=== PATIENT | female | born 1985 | race African-American/Black ===

== ENCOUNTER 2018-06-11 10:02 | Emergency (ER) | payer SELFPAY ==
--- NOTE | 2018-06-11 10:34 | ER Document Report ---
ED Medical Screen (RME) - General Chief Complaint: Vaginal Discharge Stated Complaint: VAGINAL PAIN Time Seen by Provider: 06/11/18 10:33 Notes: 32 years old female had sexual intercourse 7 years after, last , now having swelling of the vulvovaginal region. No discharges. Slight itching. Therefore present to the ED. TRAVEL OUTSIDE OF THE [place] IN LAST 30 DAYS: No - Related Data Allergies/Adverse Reactions: adhesive Allergy (Verified 06/11/18 10:25) No Known Drug Allergies Allergy (Verified 06/11/18 10:25) Past Medical History - Social History Chew tobacco use (# tins/day): No Frequency of alcohol use: Social Drug Abuse: None Renal/ Medical History: Denies: Hx Peritoneal Dialysis Physical Exam - Vital signs Vitals: Temp Pulse Resp BP Pulse Ox 98.4 F 69 14 119/78 99 06/11/18 10:25 06/11/18 10:25 06/11/18 10:25 06/11/18 10:25 06/11/18 10:25 Course - Vital Signs Vital signs: Temp Pulse Resp BP Pulse Ox 98.4 F 69 14 119/78 99 06/11/18 10:25 06/11/18 10:25 06/11/18 10:25 06/11/18 10:25 06/11/18 10:25 Doctor's Discharge - Discharge Referrals: LOCALMD,NO [Primary Care Provider] - Follow up as needed
--- NOTE | 2018-06-11 11:58 | ER Document Report ---
ED General - General Chief Complaint: Vaginal Discharge Stated Complaint: VAGINAL PAIN Time Seen by Provider: 06/11/18 10:33 Mode of Arrival: Ambulatory Information source: Patient Notes: 32-year-old female presents emergency department with complaints of vaginal swelling, pain, discharge. Patient states that she had intercourse a week ago and has had progressive symptoms since. Patient states that she is also had some intermittent vaginal itching. She has been applying Monistat with minimal relief of symptoms. Patient denies a history of STDs. She denies any dysuria, hematuria, vaginal bleeding TRAVEL OUTSIDE OF THE [place] IN LAST 30 DAYS: No - HPI Onset: Last week Onset/Duration: Sudden Quality of pain: Achy Severity: Mild Associated symptoms: None Exacerbated by: Denies Relieved by: Denies Similar symptoms previously: No Recently seen / treated by doctor: No - Related Data Allergies/Adverse Reactions: adhesive Allergy (Verified 06/11/18 10:25) No Known Drug Allergies Allergy (Verified 06/11/18 10:25) Past Medical History - Social History Smoking Status: Never Smoker Chew tobacco use (# tins/day): No Frequency of alcohol use: Social Drug Abuse: None Family History: Reviewed & Not Pertinent Patient has suicidal ideation: No Patient has homicidal ideation: No Renal/ Medical History: Denies: Hx Peritoneal Dialysis Review of Systems - Review of Systems Constitutional: No symptoms reported EENT: No symptoms reported Cardiovascular: No symptoms reported Respiratory: No symptoms reported Gastrointestinal: No symptoms reported Genitourinary: No symptoms reported Female Genitourinary: Painful intercourse Musculoskeletal: No symptoms reported Skin: No symptoms reported Hematologic/Lymphatic: No symptoms reported Neurological/Psychological: No symptoms reported -: Yes All other systems reviewed and negative Physical Exam - Vital signs Vitals: Temp Pulse Resp BP Pulse Ox 98.4 F 69 14 119/78 99 06/11/18 10:25 06/11/18 10:25 06/11/18 10:25 06/11/18 10:25 06/11/18 10:25 - General Notes: PHYSICAL EXAMINATION: GENERAL: Well-appearing, well-nourished and in no acute distress. HEAD: Atraumatic, normocephalic. EYES: Pupils equal round and reactive to light, extraocular movements intact, conjunctiva are normal. ENT: Nares patent, oropharynx clear without exudates. Moist mucous membranes. NECK: Normal range of motion, supple without lymphadenopathy LUNGS: Breath sounds clear to auscultation bilaterally and equal. No wheezes rales or rhonchi. HEART: Regular rate and rhythm without murmurs ABDOMEN: Soft, nontender, nondistended abdomen. No guarding, no rebound. No masses appreciated. Female : Ulceration seen at the vaginal hymen remnant. +white discharge. No CMT. Musculoskeletal: Normal range of motion, no pitting or edema. No cyanosis. NEUROLOGICAL: Cranial nerves grossly intact. Normal speech, normal gait. Normal sensory, motor exams PSYCH: Normal mood, normal affect. SKIN: Warm, Dry, normal turgor, no rashes or lesions noted. Course - Re-evaluation Re-evalutation: 06/11/18 13:10 Patient requesting treatment for STDs. Given rocephin and azithromycin in the ED. I will give her a rx for valtrex. HSV culture sent to lab. +UTI. Will start on cipro. Patient told to take the medication as directed, to followup with her PCP this week, and to return for worsening symptoms. 06/11/18 13:18 - Vital Signs Vital signs: Temp Pulse Resp BP Pulse Ox 98.4 F 69 14 119/78 99 06/11/18 10:25 06/11/18 10:25 06/11/18 10:25 06/11/18 10:25 06/11/18 10:25 - Laboratory Laboratory results interpreted by me: 06/11/18 11:54 Urine Ketones 20 H Urine Urobilinogen 2.0 H Ur Leukocyte Esterase MODERATE H Discharge - Discharge Clinical Impression: Herpes simplex virus (HSV) infection of vagina Condition: Good Disposition: HOME, SELF-CARE Instructions: Genital Herpes ([facility]) Prescriptions: Ciprofloxacin HCl [Cipro 500 mg Tablet] 250 mg PO BID #6 tablet Valacyclovir HCl [Valtrex 500 Mg Tablet] 1,000 mg PO BID #40 tablet Referrals: SHERI GASTELUM [Primary Care Provider] - Follow up as needed MONET REYNA DO [NO LOCAL MD] - Follow up as needed ANAYELI BREWER DO [ACTIVE STAFF] - Follow up as needed
[2018-06-11 12:13] LABS: APPEARANCE,URINE SLIGHTLY-CLOUDY; BILIRUBIN,URINE NEGATIVE (NEGATIVE); COLOR,URINE YELLOW; GLUCOSE, URINE NEGATIVE (NEGATIVE); KETONES,URINE 20 mg/dL (NEGATIVE); LEUKOCYTE ESTERASE,URINE MODERATE (NEGATIVE); NITRITE,URINE NEGATIVE (NEGATIVE); PROTEIN,URINE NEGATIVE (NEGATIVE); URINE SPECIFIC GRAVITY 1.021
[2018-06-11] MEDS ORDERED: AZITHROMYCIN 1 GM SUSP PACKET PO ONE (12:26)
[2018-06-11] MEDS ORDERED: CEFTRIAXONE INJ 250 MG VIAL IM ONE (12:26)
[2018-06-11] MEDS ORDERED: LIDOCAINE 1% INJ-PF (10 MG/ML) 30 ML SDV INFIL ONE (12:26)
[2018-06-11 12:36] LABS: BACTERIA (WET MOUNT) 3+ BACTERIA SEEN; RBCS (WET MOUNT) FEW RBCS SEEN; T.VAGINALIS (WET MOUNT) NO TRICHOMONAS SEEN; WBCS (WET MOUNT) FEW WBCS SEEN; YEAST (WET MOUNT) YEAST SEEN
[2018-06-11] MEDS ORDERED: AZITHROMYCIN 250 MG TABLET PO ONE (12:48)
[2018-06-11 13:41] VITALS: BP 114/87
[2018-06-11] MEDS ORDERED: ONDANSETRON 4 MG TAB.RAPDIS PO ONE (13:46)
[2018-06-11 15:27] LABS: CHLAM PCR NOT DETECTED (NOT DETECT)
[2018-06-11 15:28] LABS: GON PCR NOT DETECTED (NOT DETECT)
== END 2018-06-11 13:53 | disposition home or self-care (01) ==
LOC: ER 10:02
DX: A60.04 Herpesviral vulvovaginitis (principal); Z91.048 Other nonmedicinal substance allergy status
CPT/HCPCS: 99283; 96372; 87210; 81025; 81001; 87250; 87491; 87591; S0119; J3490; J0696

== ENCOUNTER 2020-06-28 15:12 | Emergency (ER) | payer SELFPAY ==
--- NOTE | 2020-06-28 15:44 | ER Document Report ---
ED Medical Screen (RME) - General Chief Complaint: Back Pain Stated Complaint: BACK PAIN,ABDOMINAL PAIN Time Seen by Provider: 06/28/20 15:40 Mode of Arrival: Ambulatory Information source: Patient Notes: 4-year-old female presented to ED for complaint of vaginal bleeding. She states last menstrual period was May 12. She has had an ectopic in the past. She was treated for methotrexate with that. [employer] 2 para 0. She does have genital herpes and has a history of a heart murmur. She states she does not smoke drink or use any illicit drugs. Will order blood urine and a tr ansvaginal ultrasound. With pain is on the left side. She states she has been intermittently bleeding for 3 weeks she states the cramping has been just before she starts bleeding for the last 3 weeks. I have greeted and performed a rapid initial assessment of this patient. A comprehensive ED assessment and evaluation of the patient, analysis of test results and completion of medical decision making process will be conducted by an additional ED providers. TRAVEL OUTSIDE OF THE [place] IN LAST 30 DAYS: No - Related Data Allergies/Adverse Reactions: adhesive Allergy (Verified 06/11/18 10:25) hartley Allergy (Verified 03/01/19 10:17) No Known Drug Allergies Allergy (Verified 06/11/18 10:25) Past Medical History Renal/ Medical History: Denies: Hx Peritoneal Dialysis Past Surgical History: Reports: Hx Oral Surgery - dental - Immunizations Immunizations up to date: Yes Physical Exam - Vital signs Vitals: Temp Pulse Resp BP Pulse Ox 98.1 F 92 14 119/75 100 06/28/20 15:31 06/28/20 15:31 06/28/20 15:31 06/28/20 15:31 06/28/20 15:31 Course - Vital Signs Vital signs: Temp Pulse Resp BP Pulse Ox 98.1 F 92 14 119/75 100 06/28/20 15:31 06/28/20 15:31 06/28/20 15:31 06/28/20 15:31 06/28/20 15:31
[2020-06-28 16:28] LABS: ABSOLUTE LYMPHOCYTES (AUTO) 1.8 10^3/uL (0.5-4.7); ABSOLUTE MONOCYTES (AUTO) 0.9 10^3/uL (0.1-1.4); ABSOLUTE NEUT (AUTO) 4.5 10^3/uL (1.7-8.2); BASOPHILS % (AUTO) 0.7 % (0-2); EOSINOPHILS % (AUTO) 0.2 % (0-6); HEMATOCRIT 37.3 % (36.0-47.0); HEMOGLOBIN 12.6 g/dL (12.0-15.5); LYMPHOCYTES % (AUTO) 24.5 % (13-45); MEAN CORPUSCULAR HEMOGLOBIN 31.6 pg (27.0-33.4); MEAN CORPUSCULAR HGB CONC 33.6 g/dL (32.0-36.0); MEAN CORPUSCULAR VOLUME 94 fl (80-97); MONOCYTES % (AUTO) 12.2 % (3-13); PLATELET COUNT 212 10^3/uL (150-450); RED BLOOD COUNT 3.98 10^6/uL (3.72-5.28); RED CELL DISTRIBUTION WIDTH 13.5 % (11.5-14.0); SEGMENTED NEUTROPHILS % (AUTO) 62.4 % (42-78); TOTAL CELLS COUNTED % (AUTO) 100 %; WHITE BLOOD COUNT 7.1 10^3/uL (4.0-10.5)
[2020-06-28 16:32] LABS: APPEARANCE,URINE CLEAR; BILIRUBIN,URINE NEGATIVE (NEGATIVE); COLOR,URINE YELLOW; GLUCOSE, URINE NEGATIVE (NEGATIVE); KETONES,URINE NEGATIVE (NEGATIVE); LEUKOCYTE ESTERASE,URINE NEGATIVE (NEGATIVE); NITRITE,URINE NEGATIVE (NEGATIVE); PROTEIN,URINE NEGATIVE (NEGATIVE); UROBILINOGEN,URINE NEGATIVE mg/dL (<2.0)
[2020-06-28 16:42] LABS: ALBUMIN 4.6 g/dL (3.5-5.0); ALKALINE PHOSPHATASE 52 U/L (38-126); ANION GAP 10 (5-19); ASPARTATE AMINO TRANSFERASE 22 U/L (14-36); BILIRUBIN,TOTAL 0.5 mg/dL (0.2-1.3); BLOOD UREA NITROGEN 9 mg/dL (7-20); CALCIUM 9.3 mg/dL (8.4-10.2); CARBON DIOXIDE 27 mmol/L (22-30); CHLORIDE 101 mmol/L (98-107); GLUCOSE 119 mg/dL (75-110); POTASSIUM 3.6 mmol/L (3.6-5.0)
--- NOTE | 2020-06-28 17:26 | ER Document Report ---
ED GI/ - General Chief Complaint: Vaginal Bleeding Stated Complaint: BACK PAIN,ABDOMINAL PAIN Time Seen by Provider: 06/28/20 15:40 Primary Care Provider: KESHA CARRERA PA-C [Primary Care Provider] - Follow up as needed Mode of Arrival: Ambulatory Notes: CHIEF COMPLAINT: Left lower quadrant pain HPI: 84-year-old female with prior history of ovarian cyst and ectopic presenting with 3 weeks of intermittent pain in the left pelvis more persistent today. No fever. Did miss her menstrual cycle last month has had some dark vaginal bleeding over the last several days. No vomiting. ROS: See HPI - all other systems were reviewed and are otherwise negative Constitutional: no fever or recent illness Eyes: no drainage, no blurred vision ENT: no runny nose, no sore throat Cardiovascular: no chest pain Resp: no SOB, no cough GI: no vomiting, no diarrhea, positive left lower pelvic pain : no dysuria, no vaginal discharge, positive vaginal bleeding Integumentary: no rash Allergy: no hives Musculoskeletal: no extremity pain or swelling Neurological: no numbness/tingling, no weakness MEDICATIONS: I agree with the patient medications as charted by the RN. ALLERGIES: I agree with the allergies as charted by the RN. PAST MEDICAL HISTORY/PAST SURGICAL HISTORY: Reviewed and agree as charted by RN. SOCIAL HISTORY: Reviewed and agree as charted by RN. FAMILY HISTORY: No significant familial comorbid conditions directly related to patient complaint EXAM: Reviewed vital signs as charted by RN. CONSTITUTIONAL: Alert and oriented and responds appropriately to questions. Well-appearing; well-nourished HEAD: Normocephalic; atraumatic EYES: PERRL; Conjunctivae clear, sclerae non-icteric ENT: normal nose; no rhinorrhea; moist mucous membranes; pharynx without lesions noted NECK: Supple without meningismus; non-tender; no cervical lymphadenopathy, no masses CARD: RRR; no murmurs, no clicks, no rubs, no gallops; symmetric distal pulses RESP: Normal chest excursion without splinting or tachypnea; breath sounds clear and equal bilaterally; no wheezes, no rhonchi, no rales ABD/GI: Normal bowel sounds; non-distended; soft, non-tender, no rebound, no guarding; no palpable organomegaly or masses : Female nurse interior design principal present. External genitalia normal. No skin lesions noted. Pelvic Exam: Very small amount of dark red blood in the vaginal vault. No purulent discharge. Cervix appears normal. No CMT. No lesions or masses. Uterus normal size and non tender. Right/Left adnexa normal size and mildly tender on the left. BACK: The back appears normal and is non-tender to palpation, there is no CVA tenderness EXT: Normal ROM in all joints; non-tender to palpation; no cyanosis, no effusions, no edema SKIN: Normal color for age and race; warm; dry; good turgor; no acute lesions noted NEURO: Moves all extremities equally; Motor and sensory function intact PSYCH: The patient's mood and manner are appropriate. Grooming and personal hygiene are appropriate. MDM: 34-year-old female presenting with left pelvic pain over the last 2 to 3 weeks. Some dark vaginal bleeding. Suspect ovarian cyst. Patient is not . Low suspicion for torsion at this time. Initial ultrasound placed in the triage process was for OB ultrasound I have spoken with the vibration technician and we will change this to a non transvaginal ultrasound with Doppler TRAVEL OUTSIDE OF THE [place] IN LAST 30 DAYS: No - Related Data Allergies/Adverse Reactions: adhesive Allergy (Verified 06/28/20 17:11) hartley Allergy (Verified 06/28/20 17:11) No Known Drug Allergies Allergy (Verified 06/28/20 17:11) Past Medical History - General Information source: Patient - Social History Smoking Status: Never Smoker Family History: Reviewed & Not Pertinent Renal/ Medical History: Denies: Hx Peritoneal Dialysis Past Surgical History: Reports: Hx Oral Surgery - dental - Immunizations Immunizations up to date: Yes Physical Exam - Vital signs Vitals: Temp Pulse Resp BP Pulse Ox 98.1 F 92 14 119/75 100 06/28/20 15:31 06/28/20 15:31 06/28/20 15:31 06/28/20 15:31 06/28/20 15:31 Course - Re-evaluation Re-evalutation: 06/28/20 18:25 Patient ultrasound does not show evidence of torsion, ovarian cyst, fibroid. No definitive reason for the patient's pain. She did miss a menstrual cycle likely having abnormal vaginal bleeding. Will place her on anti-inflammatories refer to SPA DIRECTOR for follow-up. - Vital Signs Vital signs: Temp Pulse Resp BP Pulse Ox 98.1 F 92 14 119/75 100 06/28/20 15:31 06/28/20 15:31 06/28/20 15:31 06/28/20 15:31 06/28/20 15:31 - Laboratory Result Diagrams: 06/28/20 16:06 06/28/20 16:06 Laboratory results interpreted by me: 06/28/20 06/28/20 16:06 16:06 Glucose 119 H Urine Blood MODERATE H Discharge - Discharge Clinical Impression: Acute pelvic pain, female, Abnormal vaginal bleeding Condition: Stable Disposition: HOME, SELF-CARE Additional Instructions: Lab work and imaging studies today did not show definitive reason for your abdominal and pelvic pain. Take the anti-inflammatories as prescribed, follow- up closely with your SPA DIRECTOR for further evaluation and treatment call for a ppointment. You are not Prescriptions: Diclofenac Sodium [Voltaren 50 Mg Tablet.] 50 mg PO BID #20 tablet. Referrals: KESHA CARRERA PA-C [Primary Care Provider] - Follow up as needed RONALDO LOCKHART MD [ACTIVE STAFF] - Follow up as needed
[2020-06-28 17:44] LABS: RBCS (WET MOUNT) FEW RBCS SEEN; T.VAGINALIS (WET MOUNT) NO TRICHOMONAS SEEN; WBCS (WET MOUNT) FEW WBCS SEEN; YEAST (WET MOUNT) NO YEAST SEEN
--- NOTE | 2020-06-28 18:04 | RADIOLOGY REPORT (SQ) ---
EXAM DESCRIPTION: U/S NON OB PEL TV W/DOPPLER IMAGES COMPLETED DATE/TIME: 06/28/2020 5:50 pm REASON FOR STUDY: Vaginal bleeding COMPARISON: None. TECHNIQUE: Dynamic and static grayscale images acquired of the pelvis via transvaginal approach and recorded on PACS. Additional selected color Doppler and spectral images recorded. LIMITATIONS: None. FINDINGS: UTERUS: Contour normal. No mass. ENDOMETRIAL STRIPE: Heterogeneous without focal or generalized thickening. No masses. CERVIX: No nabothian cysts. RIGHT OVARY AND DOPPLER: Normal size. No worrisome masses. Normal arterial vascular flow without evid ence for torsion. LEFT OVARY AND DOPPLER: Normal size. No worrisome masses. Normal arterial vascular flow without evide nce for torsion. FREE FLUID: None noted. OTHER: No other significant finding. MEASUREMENTS: UTERUS: 6.7 x 4.0 x 3.4 cm ENDOMETRIAL STRIPE: 7 mm RIGHT OVARY: 4.1 x 2.3 x 2.9 cm LEFT OVARY: 3.8 x 2.6 x 3.1 cm IMPRESSION: Heterogeneous appearance of the endometrial echo complex is likely related to the patien t's presenting symptoms; however, no focal thickening or evidence of sub mucosal fibroid. Otherwise normal sonographic appearance of the uterus and adnexa. TECHNICAL DOCUMENTATION: JOB ID: [id number] 2010 [employer]- All Rights Reserved Reading location - IP/workstation name: [email or web address]
[2020-06-28 18:45] VITALS: BP 120/73
[2020-06-28 19:10] LABS: CHLAM PCR NOT DETECTED (NOT DETECT)
== END 2020-06-28 18:40 | disposition home or self-care (01) ==
LOC: ER 15:12
DX: N93.8 Other specified abnormal uterine and vaginal bleeding (principal); R10.2 Pelvic and perineal pain; R10.32 Left lower quadrant pain
CPT/HCPCS: 36415; 76830; 80053; 81001; 84702; 85025; 87086; 87210; 87491; 87591; 93976; 99284

== ENCOUNTER 2020-09-08 16:04 | Emergency (ER) | payer SELFPAY ==
--- NOTE | 2020-09-08 16:29 | ER Document Report ---
ED Medical Screen (RME) - General Chief Complaint: Abdominal Pain Stated Complaint: ADOMINAL PAIN/8WKS PREG Time Seen by Provider: 09/08/20 16:24 Primary Care Provider: KESHA CARRERA PA-C [Primary Care Provider] - Follow up as needed Mode of Arrival: Ambulatory Information source: Patient Notes: 35-year-old female patient presents emergency department concern for abdominal pain in the setting of . Patient is a G2, P0 presenting with generalized abdominal and pelvic cramping, she reports she is approximately 8 weeks . She reports this may be a twin gestation. She called her provider at the resource center who advised her to come to the emergency department. Denies any vaginal bleeding or passage of fluid. Abdomen soft, nontender. No acute distress noted. I have greeted and performed a rapid initial assessment of this patient. A comprehensive ED assessment and evaluation of the patient, analysis of test results and completion of the medical decision making process will be conducted by additional ED providers. I have specifically instructed the patient or family members with the patient to immediately return to any nursing staff should anything change in the patient's condition or with their chief complaint. TRAVEL OUTSIDE OF THE [place] IN LAST 30 DAYS: No - Related Data Allergies/Adverse Reactions: adhesive Allergy (Verified 06/28/20 17:11) hartley Allergy (Verified 06/28/20 17:11) No Known Drug Allergies Allergy (Verified 06/28/20 17:11) Past Medical History Renal/ Medical History: Denies: Hx Peritoneal Dialysis Past Surgical History: Reports: Hx Oral Surgery - dental - Immunizations Immunizations up to date: Yes Physical Exam - Vital signs Vitals: Temp Pulse Resp BP Pulse Ox 98.2 F 118 H 16 125/83 100 09/08/20 16:07 09/08/20 16:07 09/08/20 16:07 09/08/20 16:07 09/08/20 16:07 Course - Vital Signs Vital signs: Temp Pulse Resp BP Pulse Ox 98.2 F 118 H 16 125/83 100 09/08/20 16:07 09/08/20 16:07 09/08/20 16:07 09/08/20 16:07 09/08/20 16:07 Doctor's Discharge - Discharge Referrals: KESHA CARRERA PA-C [Primary Care Provider] - Follow up as needed
[2020-09-08 17:14] LABS: ABSOLUTE LYMPHOCYTES (AUTO) 1.6 10^3/uL (0.5-4.7); ABSOLUTE MONOCYTES (AUTO) 1.1 10^3/uL (0.1-1.4); BASOPHILS % (AUTO) 0.2 % (0-2); EOSINOPHILS % (AUTO) 0.2 % (0-6); HEMOGLOBIN 12.4 g/dL (12.0-15.5); LYMPHOCYTES % (AUTO) 16.6 % (13-45); MEAN CORPUSCULAR HEMOGLOBIN 30.4 pg (27.0-33.4); MEAN CORPUSCULAR HGB CONC 32.6 g/dL (32.0-36.0); MEAN CORPUSCULAR VOLUME 93 fl (80-97); MONOCYTES % (AUTO) 10.9 % (3-13); PLATELET COUNT 236 10^3/uL (150-450); RED BLOOD COUNT 4.08 10^6/uL (3.72-5.28); RED CELL DISTRIBUTION WIDTH 12.9 % (11.5-14.0); SEGMENTED NEUTROPHILS % (AUTO) 72.1 % (42-78); TOTAL CELLS COUNTED % (AUTO) 100 %; WHITE BLOOD COUNT 9.7 10^3/uL (4.0-10.5)
[2020-09-08] MEDS ORDERED: NORMAL SALINE 1000 ML 1,000 ML IV ONE (17:19)
[2020-09-08 17:27] LABS: ALBUMIN 4.5 g/dL (3.5-5.0); ALKALINE PHOSPHATASE 41 U/L (38-126); ANION GAP 9 (5-19); APPEARANCE,URINE CLEAR; ASPARTATE AMINO TRANSFERASE 20 U/L (14-36); BILIRUBIN,DIRECT 0.1 mg/dL (0.0-0.4); BILIRUBIN,TOTAL 0.5 mg/dL (0.2-1.3); BILIRUBIN,URINE NEGATIVE (NEGATIVE); BLOOD UREA NITROGEN 6 mg/dL (7-20); CALCIUM 9.8 mg/dL (8.4-10.2); CARBON DIOXIDE 24 mmol/L (22-30); CHLORIDE 103 mmol/L (98-107); COLOR,URINE YELLOW; GLUCOSE 155 mg/dL (75-110); GLUCOSE, URINE NEGATIVE (NEGATIVE); KETONES,URINE TRACE mg/dL (NEGATIVE); LEUKOCYTE ESTERASE,URINE NEGATIVE (NEGATIVE); NITRITE,URINE NEGATIVE (NEGATIVE); POTASSIUM 3.8 mmol/L (3.6-5.0); PROTEIN,URINE NEGATIVE (NEGATIVE); TOTAL PROTEIN 7.9 g/dL (6.3-8.2); URINE SPECIFIC GRAVITY 1.008; UROBILINOGEN,URINE NEGATIVE mg/dL (<2.0)
--- NOTE | 2020-09-08 17:31 | ER Document Report ---
ED GI/ - General Chief Complaint: Abdominal Pain Stated Complaint: ADOMINAL PAIN/8WKS PREG Time Seen by Provider: 09/08/20 16:24 Primary Care Provider: KESHA CARRERA PA-C [Primary Care Provider] - Follow up as needed Mode of Arrival: Ambulatory Notes: HPI: 35-year-old female -0-1-0 with supposedly an ultrasound at the [facility] showing an IUP who presents with some bilateral pelvic pain this morning. She states it is equal to both sides. No real aggravating relieving factors. No nausea, vomiting, dysuria, vaginal bleeding, or discharge. She denies any real aggravating relieving factors. No radiation to the back. ROS: See HPI All other review of systems reviewed and otherwise negative Reviewed vital signs and nursing note as charted by RN. PHYSICAL EXAM: CONSTITUTIONAL: Alert and oriented and responds appropriately to questions. Well-appearing; well-nourished HEAD: Normocephalic; atraumatic CARD: Regular rate and rhythm; no murmurs; symmetric distal pulses RESP: Normal chest excursion without splinting or tachypnea; breath sounds clear and equal bilaterally ABD/GI: Normal bowel sounds; non-distended; soft, currently nontender to deep palpation of all 4 quadrants of the abdomen BACK: The back appears normal and is non-tender to palpation EXT: Normal ROM in all joints; non-tender to palpation; no edema SKIN: No acute lesions noted NEURO: CN 2-12 intact; 5/5 bilateral upper and lower extremity strength with sensation intact to light touch PSYCH: The patient's mood and manner are appropriate. Grooming and personal hygiene are appropriate. TRAVEL OUTSIDE OF THE [place] IN LAST 30 DAYS: No - Related Data Allergies/Adverse Reactions: adhesive Allergy (Verified 06/28/20 17:11) hartley Allergy (Verified 06/28/20 17:11) No Known Drug Allergies Allergy (Verified 06/28/20 17:11) Past Medical History - General Information source: Patient - Social History Smoking Status: Unknown if Ever Smoked Family History: Reviewed & Not Pertinent Renal/ Medical History: Denies: Hx Peritoneal Dialysis Past Surgical History: Reports: Hx Oral Surgery - dental - Immunizations Immunizations up to date: Yes Physical Exam - Vital signs Vitals: Temp Pulse Resp BP Pulse Ox 98.2 F 118 H 16 125/83 100 09/08/20 16:07 09/08/20 16:07 09/08/20 16:07 09/08/20 16:07 09/08/20 16:07 Course - Re-evaluation Re-evalutation: 09/08/20 17:30 Given the above history and physical, ultrasound, quantitative hCG, urine analysis, and pelvic set up has been performed. We will like to evaluate for the possibility of an ectopic , molar , cramping in early , or pending miscarriage. Given the bilateral nature of the patient's pain, intermittent in nature, currently nontender, I do believe appendicitis and ovarian torsion to be unlikely. 09/08/20 18:57 Ultrasound as recorded. Quantitative hCG is elevated. No signs of urinary tract or pelvic infection. Vital signs are stable. No pain on repeat examination. Patient will be discharged home with strict return precautions and follow-up regarding reassessment of the right ovarian cyst. - Vital Signs Vital signs: Temp Pulse Resp BP Pulse Ox 98.2 F 118 H 16 125/83 100 09/08/20 16:07 09/08/20 16:07 09/08/20 16:07 09/08/20 16:07 09/08/20 16:07 - Laboratory Results Result Diagrams: 09/08/20 16:40 09/08/20 16:40 Laboratory Results Interpreted: 09/08/20 09/08/20 16:40 16:40 Sodium 136.2 L BUN 6 L Glucose 155 H Beta HCG, Quant 62494.00 H Urine Ketones TRACE H Critical Laboratory Results Reviewed: No Critical Results - Radiology Results Critical Radiology Results Reviewed: No Critical Results Discharge - Discharge Clinical Impression: Pelvic pain affecting in first trimester, antepartum Condition: Good Disposition: HOME, SELF-CARE Additional Instructions: Come back immediately for any increased pain, vaginal bleeding, change in location or quality of pain, fevers or vomiting, or any other acute problems. Please make sure that you follow-up with your primary care physician and/your BAND CUTTING MACHINE OPERATOR for reassessment of the complex right ovarian cyst as we have discussed. Referrals: KESHA CARRERA PA-C [Primary Care Provider] - Follow up as needed
--- NOTE | 2020-09-08 18:24 | RADIOLOGY REPORT (SQ) ---
EXAM DESCRIPTION: U/S OB TRANSVAGINAL W/O DOP IMAGES COMPLETED DATE/TIME: 09/08/2020 2:26 pm REASON FOR STUDY: 8 weeks preg, abd pain COMPARISON: Pelvic ultrasound 06/28/2020 TECHNIQUE: Transvaginal static and realtime grayscale images acquired of the pelvis. Additional diya cted spectral and color Doppler images recorded. All images stored on PACs. bHCG: Pending. CLINICAL DATES: 8 weeks and 2 days LIMITATIONS: None. FINDINGS: FETUS: Single Living intrauterine . ULTRASOUND EGA: 6 weeks and 3 days ULTRASOUND NELSON: 05/01/2021 EFW: Not applicable less than 20 weeks. CRL: 0.6 cm FHR: 122 beats per minute. SURVEY: Too early to assess. AMNIOTIC FLUID: Adequate amount. PLACENTA: Not yet developed due to early gestation. SUBCHORIONIC BLEED: No. SIZE OF BLEED: Not applicable. UTERUS: No masses. No anomalies. CERVICAL LENGTH: 3.0 cm Closed. RIGHT ADNEXA: Multiple cystic structures in the right adnexa, at least 2 of which are complex. Thick -walled cystic structure measures 2.4 x 2.1 x 1.4 cm and a heterogeneous probable cystic structure me asures 1.8 x 1.3 x 1.1 cm. The cysts may be within or immediately adjacent to the right ovary. Diff erential considerations include corpus luteal and hemorrhagic cysts. Endometrioma is also a possibil ity, though considered slightly less likely. 2 larger relatively simple appearing cysts are also dem onstrated. Color and spectral Doppler images demonstrate blood flow to the right ovary. Small amount of free fluid. LEFT ADNEXA: Normal ovary with normal vascular flow. No adnexal free fluid. No adnexal masses. FREE FLUID: Small amount of free fluid in the cul-de-sac and right adnexa. OTHER: No other significant finding. IMPRESSION: LIVING INTRAUTERINE . EGA 6 weeks and 3 days Multiple cystic structures within or immediately adjacent to the right ovary, at least 2 of which are complex. Findings could simply represent corpus luteal/ hemorrhagic cysts, however recommend close sonographic follow-up to confirm resolution and exclude other pathology. Correlate with any symptoms of infection. Trimester of : First trimester - 0 to 13 weeks. TECHNICAL DOCUMENTATION: JOB ID: [id number] [employer]- All Rights Reserved rev-12/27 Reading location - IP/workstation name: [email or web address]
[2020-09-08 18:27] LABS: EPITHELIALS (WET MOUNT) 3+ EPITHELIALS SEEN; T.VAGINALIS (WET MOUNT) NO TRICHOMONAS SEEN; WBCS (WET MOUNT) RARE WBCS SEEN; YEAST (WET MOUNT) NO YEAST SEEN
[2020-09-08 19:26] VITALS: BP 128/32
[2020-09-08 20:02] LABS: CHLAM PCR NOT DETECTED (NOT DETECT)
== END 2020-09-08 19:24 | disposition home or self-care (01) ==
LOC: ER 16:04
DX: O34.81 Maternal care for other abnormalities of pelvic organs, first trimester (principal); N83.201 Unspecified ovarian cyst, right side; O26.891 Other specified pregnancy related conditions, first trimester; R10.2 Pelvic and perineal pain; Z3A.08 8 weeks gestation of pregnancy; Z91.048 Other nonmedicinal substance allergy status; Z91.018 Allergy to other foods
CPT/HCPCS: 99285; 96360; 86900; 86901; 36415; 87210; 84702; 85025; 80053; 81001; 87491; 87591; 76817; J7030